=== PATIENT | female | born 1955 | race Caucasian/White ===

== ENCOUNTER 2018-02-12 10:00 | Inpatient (IN) | payer OTHER ==
[~2018-02-12] VITALS: Ht 167.6 cm; Wt 117.9 kg
[2018-02-12] MEDS ORDERED: ATACAND16 MG PO (14:14)
[2018-02-12] MEDS ORDERED: ASPIR 8181 MG PO (14:15)
== END 2018-02-24 12:57 | disposition home or self-care (01) | DRG 333 ==
LOC: O/R 02-21 05:55 → SURH 02-21 05:55
PROVIDERS: Surgery
PROC: 3E0T3BZ Introduction of Anesthetic Agent into Peripheral Nerves and Plexi, Percutaneous Approach (ICD-10-PCS; 2018-02-21)
PROC: 3E0F7GC Introduction of Other Therapeutic Substance into Respiratory Tract, Via Natural or Artificial Opening (ICD-10-PCS; 2018-02-21)
PROC: B246ZZZ Ultrasonography of Right and Left Heart (ICD-10-PCS; 2018-02-21)
PROC: 0DBP4ZZ Excision of Rectum, Percutaneous Endoscopic Approach (ICD-10-PCS; principal; 2018-02-21 07:00)
PROC: 4A033R1 Measurement of Arterial Saturation, Peripheral, Percutaneous Approach (ICD-10-PCS; 2018-02-22)
DX: D12.8 Benign neoplasm of rectum (principal); J81.1 Chronic pulmonary edema; J95.89 Other postprocedural complications and disorders of respiratory system, not elsewhere classified; K62.5 Hemorrhage of anus and rectum; I11.9 Hypertensive heart disease without heart failure; R09.02 Hypoxemia; K62.1 Rectal polyp